=== PATIENT | male | born 1955 | race Two or more races ===

== ENCOUNTER 2020-02-03 09:39 | Emergency (ER) | payer OTHER ==
[~2020-02-03] VITALS: Ht 157.5 cm; Wt 65.8 kg
[~2020-02-03 09:39] MED LIST: DILANTIN100 MG; KEPPRA500 MG
[2020-02-03] MEDS ORDERED: KEPPRA500 MG PO (09:50)
[2020-02-03] MEDS ORDERED: DILANTIN100 MG PO (09:50)
== END 2020-02-03 14:06 | disposition home or self-care (01) ==
LOC: ER 09:39
DX: G40.802 Other epilepsy, not intractable, without status epilepticus (principal); I48.0 Paroxysmal atrial fibrillation; Z03.818 Encounter for observation for suspected exposure to other biological agents ruled out

== ENCOUNTER 2021-03-06 14:13 | Emergency (ER) | payer OTHER ==
[~2021-03-06] VITALS: Ht 160 cm; Wt 60.8 kg
[~2021-03-06 14:13] MED LIST changes: +DILANTIN100 MG PO; +KEPPRA500 MG PO
== END 2021-03-06 22:20 | disposition home or self-care (01) ==
LOC: ER 14:13
DX: G40.802 Other epilepsy, not intractable, without status epilepticus (principal)